=== PATIENT | female | born 2000 | race Caucasian/White ===

== ENCOUNTER 2020-05-19 20:07 | Emergency (ER) | payer MEDICAID ==
[~2020-05-19] VITALS: Ht 149.9 cm; Wt 46.9 kg
--- NOTE | 2020-05-19 20:25 | NUR ---
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
[2020-05-19 20:48] LABS: BASOPHILS % (AUTO) 0 % (0-1); EOSINOPHILS % (AUTO) 1 % (1-7); LYMPHOCYTES % (AUTO) 14 % (22-44); MEAN CORPUSCULAR HEMOGLOBIN 28.8 pg (27.0-34.8); MEAN CORPUSCULAR HGB CONC 33.4 g/dL (32.4-35.8); MEAN PLATELET VOLUME 7.1 fL (7.4-10.4); MONOCYTES % (AUTO) 7 % (2-9); NEUTROPHILS % (AUTO) 77 % (42-75); PLATELET COUNT 439 x10^3/uL (130-400); RED BLOOD COUNT 4.55 x10^6/uL (3.82-5.3); RED CELL DISTRIBUTION WIDTH 12.5 % (9.6-15.2)
[2020-05-19 20:52] LABS: MD NO
[2020-05-19 20:58] LABS: MICROSCOPIC INDICATED
[2020-05-19 20:59] LABS: ALANINE AMINOTRANSFERASE 13 U/L (12-78); ALBUMIN 3.5 g/dL (3.4-5.0); ANION GAP 4 mmol/L (5-15); CALCIUM 8.7 mg/dL (8.5-10.1); CHLORIDE 107 mmol/L (98-107); CREATININE 0.68 mg/dL (0.55-1.02)
[2020-05-19 21:03] LABS: ALKALINE PHOSPHATASE 126 U/L (45-117); BILIRUBIN,TOTAL 0.3 mg/dL (0.2-1.0); TOTAL PROTEIN 8.6 g/dL (6.4-8.2)
--- NOTE | 2020-05-19 22:00 | NUR ---
late entry d/t pt care: pt back to room at this time c/o of right sided midline abdominal pain and right sided flank pain, denies GI changes, no N/V/D, son about 3 mos old at home, nad, rates pain 7/10 a this time, ongoing 3 days. wctm. pt placed on spo2/bp monitoring
--- NOTE | 2020-05-19 22:54 | NUR ---
pt resting on gurney, nad, appears comfortable, given additional warm blankets for comfort, wctm. waiting for US.
--- NOTE | 2020-05-19 23:06 | NUR ---
US at bs, pt nad, no change in condition, wctm.
[2020-05-20 00:18] VITALS: BP 124/79
--- NOTE | 2020-05-20 00:22 | NUR ---
Patient given discharge instructions and they have confirmed that they understand the instructions. Patient ambulatory with steady gait. NAD, DENIES ADDITIONAL QUESTIONS OR NEEDS AT THIS TIME. NO PERSONAL BELONGINGS LEFT IN ROOM AT TIME OF DC.
== END 2020-05-20 00:24 | disposition home or self-care (01) ==
LOC: ED 22:20
DX: R10.11 Right upper quadrant pain (principal); R05 Cough
CPT/HCPCS: 36415; 76700; 80053; 81001; 84703; 85025; 87086; 99284